=== PATIENT | male | born 1965 | race Caucasian/White ===

== ENCOUNTER 2018-04-08 17:39 | Emergency (ER) | payer BC, OTHER ==
[~2018-04-08] VITALS: Ht 182.9 cm; Wt 93.0 kg
[~2018-04-08 17:39] MED LIST: BACT2OIN TOP; CEPH500C3 PO; INDO50CA PO; LORT5TAB PO; TOPR100T15 PO; VYTO10TA29 PO
[2018-04-08 17:46] VITALS: BP 165/92; PULSE 91; RESP 16; TEMP 98.5; O2SAT 97
[2018-04-08] MEDS ORDERED: SODIUM CHLORIDE 0.9% FLUSH 10 ML FLUSH IVF PRN (18:30)
[2018-04-08] MEDS ORDERED: SODIUM CHLOR 0.9% 1000 ML INJ 1,000 ML IV ONE (18:30)
[2018-04-08] MEDS ORDERED: KETOROLAC TROMETHAMINE 30 MG/ML (IVP) VIAL IV PUSH ONE (18:30)
[2018-04-08 18:53] LABS: AUTOMATED NEUTROPHIL # 6.7 TH/MM3 (1.8-7.7); BASOPHIL # 0.4 TH/MM3 (0-0.2); BASOPHIL % 4.3 % (0.0-2.0); EOSINOPHIL # 0.3 TH/MM3 (0-0.4); EOSINOPHIL % 3.3 % (0.0-4.0); HEMATOCRIT 43.3 % (39.0-51.0); HEMOGLOBIN 14.7 GM/DL (13.0-17.0); MEAN CELL VOLUME 94.9 FL (80.0-100.0); MEAN CORPUSCULAR HEMOGLOBIN 32.2 PG (27.0-34.0); MEAN CORPUSCULAR HGB CONC 33.9 % (32.0-36.0); MEAN PLATELET VOLUME 8.2 FL (7.0-11.0); MONO % 8.6 % (0.0-8.0); MONOCYTE # 0.9 TH/MM3 (0-0.9); NEUT % 64.8 % (16.0-70.0); PLATELET COUNT 265 TH/MM3 (150-450); RED BLOOD COUNT 4.56 MIL/MM3 (4.50-5.90); RED CELL DISTRIBUTION WIDTH 11.9 % (11.6-17.2); WHITE BLOOD COUNT 10.3 TH/MM3 (4.0-11.0)
--- NOTE | 2018-04-08 18:53 | RADRPT ---
EXAM DATE/TIME: 04/08/2018 18:27 [facility] COMPARISON: No previous studies available for comparison. INDICATIONS : Right side chest pain for 5 days MEDICAL HISTORY : None. SURGICAL HISTORY : None. ENCOUNTER: Initial ACUITY: 4 - 6 days PAIN SCORE: 8/10 LOCATION: Right chest FINDINGS: Platelike airspace consolidations in the right lower lung zone. Cardiomediastinal contours are within normal limits. Bony thorax is intact. CONCLUSION: 1. Platelike right lower lung zone airspace consolidations, presumably atelectasis. Differential cons iderations include pneumonia and aspiration in the proper clinical setting. Joe Ruvalcaba MD on April 08, 2018 at 18:50 Board Certified Radiologist. This report was verified electronically.
[2018-04-08 19:01] LABS: CHLORIDE 105 MEQ/L (98-107); SODIUM (NA) 139 MEQ/L (136-145)
[2018-04-08 19:04] LABS: CALCIUM 9.6 MG/DL (8.5-10.1)
[2018-04-08 19:05] VITALS: BP 144/94; PULSE 91; RESP 18; O2SAT 95
[2018-04-08 19:05] LABS: ALBUMIN 3.8 GM/DL (3.4-5.0); BICARBONATE 28.1 MEQ/L (21.0-32.0); BLOOD UREA NITROGEN 13 MG/DL (7-18); GLUCOSE,RANDOM 87 MG/DL (74-106); MAGNESIUM 2.1 MG/DL (1.5-2.5)
[2018-04-08 19:07] LABS: PROTHROMBIN TIME - PATIENT 10.4 SEC (9.8-11.6)
--- NOTE | 2018-04-08 19:07 | PD ---
HPI Chief Complaint: Musculoskeletal Complaint Time Seen by Provider: 18:15 Travel History International Travel<30 days: No Contact w/Intl Traveler<30days: No Traveled to known affect area: No History of Present Illness HPI Patient is a 53-year-old male who presents the emergency room with multiple complaints. Patient reports that for the past 4 days, he has been having sharp stabbing pains to his right lateral chest/flank. Patient reports that pain has been constant but does change in intensity. Patient reports that pain today has been more severe. Patient reports that he has been having some difficulty with breathing and he describes his pain as pleuritic in nature. Denies any diaphoresis, denies any nausea or vomiting. Reports that he does have history of costochondritis. Patient denies any history of diabetes or hyperlipidemia or coronary artery disease. Denies any recent travels or trips. Patient reports that along with his chest pain/flank pain, he is also been having a headache. Patient reports a nonspecific headache, reports that he did not try taking any medications for relief of symptoms. Reports that this is not the worst headache of his life, denies thunderclap headache. Denies any vision changes. Patient denies any fever or chills, reports similar headaches in the past. PFSH Past Medical History High Cholesterol: Yes Hypertension: Yes Social History Alcohol Use: Yes (MODERATE) Tobacco Use: No Substance Use: No Allergies-Medications (Allergen,Severity, Reaction): Coded Allergies: No Known Allergies (Verified Allergy, Unknown, 04/08/18) Reported Meds & Prescriptions Reported Meds & Active Scripts Active Azithromycin 500 Mg Tab 500 Mg PO DAILY Review of Systems General / Constitutional: No: Fever Eyes: No: Visual changes HENT: Positive: Headaches Cardiovascular: Positive: Chest Pain or Discomfort Respiratory: Positive: Shortness of Breath Gastrointestinal: No: Abdominal Pain Genitourinary: Positive: Flank Pain, No: Dysuria Musculoskeletal: No: Pain Skin: No Rash Neurologic: No: Weakness Psychiatric: No: Depression Endocrine: No: Polydipsia Hematologic/Lymphatic: No: Easy Bruising Physical Exam Narrative GENERAL: No acute distress SKIN: Focused skin assessment warm/dry. HEAD: Atraumatic. Normocephalic. EYES: Pupils equal and round. No scleral icterus. No injection or drainage. ENT: No nasal bleeding or discharge. Mucous membranes pink and moist. NECK: Trachea midline. No JVD. CARDIOVASCULAR: Regular rate and rhythm. No murmur appreciated. Patient with right-sided lateral chest wall tenderness RESPIRATORY: No accessory muscle use. Clear to auscultation. Breath sounds equal bilaterally. GASTROINTESTINAL: Abdomen soft, non-tender, nondistended. Hepatic and splenic margins not palpable. MUSCULOSKELETAL: No obvious deformities. No clubbing. No cyanosis. No edema. NEUROLOGICAL: Awake and alert. No obvious cranial nerve deficits. Motor grossly within normal limits. Normal speech. PSYCHIATRIC: Appropriate mood and affect; insight and judgment normal. Data Data Last Documented VS Vital Signs Date Time Temp Pulse Resp B/P (MAP) Pulse Ox O2 Delivery O2 Flow Rate FiO2 04/08/18 19:33 96 18 04/08/18 19:10 151/88 (109) 95 04/08/18 19:05 Room Air 04/08/18 17:46 98.5 Orders Orders Electrocardiogram (04/08/18 ) B-Type Natriuretic Peptide (04/08/18 18:23) Ckmb (Isoenzyme) Profile (04/08/18 18:23) Complete Blood Count With Diff (04/08/18 18:23) Comprehensive Metabolic Panel (04/08/18 18:23) D-Dimer (04/08/18 18:23) Magnesium (Mg) (04/08/18 18:23) Prothrombin Time / Inr (Pt) (04/08/18 18:23) Act Partial Throm Time (Ptt) (04/08/18 18:23) Troponin I (04/08/18 18:23) Lipase (04/08/18 18:23) Chest, Single Ap (04/08/18 18:23) Ecg Monitoring (04/08/18 18:23) Iv Access Insert/Monitor (04/08/18 18:23) Oximetry (04/08/18 18:23) Sodium Chloride 0.9% Flush (Ns Flush) (04/08/18 18:30) Urinalysis - C+S If Indicated (04/08/18 18:23) Ketorolac Inj (Toradol Inj) (04/08/18 18:30) Sodium Chlor 0.9% 1000 Ml Inj (Ns 1000 M (04/08/18 18:30) Ct Pulmonary Angiogram (04/08/18 19:48) Morphine Inj (Morphine Inj) (04/08/18 20:45) Iohexol 350 Inj (Omnipaque 350 Inj) (04/08/18 20:48) Blood Culture (04/08/18 21:39) Azithromycin Inj (Zithromax Inj) (04/08/18 21:45) Ceftriaxone Inj (Rocephin Inj) (04/08/18 21:45) Labs Laboratory Tests Test 04/08/18 18:45 04/08/18 19:50 White Blood Count 10.3 TH/MM3 Red Blood Count 4.56 MIL/MM3 Hemoglobin 14.7 GM/DL Hematocrit 43.3 % Mean Corpuscular Volume 94.9 FL Mean Corpuscular Hemoglobin 32.2 PG Mean Corpuscular Hemoglobin Concent 33.9 % Red Cell Distribution Width 11.9 % Platelet Count 265 TH/MM3 Mean Platelet Volume 8.2 FL Neutrophils (%) (Auto) 64.8 % Lymphocytes (%) (Auto) 19.0 % Monocytes (%) (Auto) 8.6 % Eosinophils (%) (Auto) 3.3 % Basophils (%) (Auto) 4.3 % Neutrophils # (Auto) 6.7 TH/MM3 Lymphocytes # (Auto) 2.0 TH/MM3 Monocytes # (Auto) 0.9 TH/MM3 Eosinophils # (Auto) 0.3 TH/MM3 Basophils # (Auto) 0.4 TH/MM3 CBC Comment DIFF FINAL Differential Comment Prothrombin Time 10.4 SEC Prothromb Time International Ratio 1.0 RATIO Activated Partial Thromboplast Time 25.9 SEC D-Dimer Quantitative (PE/DVT) 2.02 MG/L FEU Blood Urea Nitrogen 13 MG/DL Creatinine 0.87 MG/DL Random Glucose 87 MG/DL Total Protein 8.4 GM/DL Albumin 3.8 GM/DL Calcium Level 9.6 MG/DL Magnesium Level 2.1 MG/DL Alkaline Phosphatase 70 U/L Aspartate Amino Transf (AST/SGOT) 17 U/L Alanine Aminotransferase (ALT/SGPT) 31 U/L Total Bilirubin 0.9 MG/DL Sodium Level 139 MEQ/L Potassium Level 3.8 MEQ/L Chloride Level 105 MEQ/L Carbon Dioxide Level 28.1 MEQ/L Anion Gap 6 MEQ/L Estimat Glomerular Filtration Rate 91 ML/MIN Total Creatine Kinase 76 U/L Troponin I LESS THAN 0.02 NG/ML B-Type Natriuretic Peptide 21 PG/ML Lipase 176 U/L Urine Color YELLOW Urine Turbidity CLEAR Urine pH 6.0 Urine Specific [place] 1.025 Urine Protein NEG mg/dL Urine Glucose (UA) NEG mg/dL Urine Ketones NEG mg/dL Urine Occult Blood NEG Urine Nitrite NEG Urine Bilirubin NEG Urine Urobilinogen 0.2 MG/DL Urine Leukocyte Esterase NEG Urine RBC 0-2 /hpf Urine WBC 0-2 /hpf Urine Squamous Epithelial Cells 0-5 /hpf Urine Bacteria NONE /hpf Microscopic Urinalysis Comment CULT NOT INDICATED MDM Medical Decision Making Medical Screen Exam Complete: Yes Emergency Medical Condition: Yes Medical Record Reviewed: Yes Interpretation(s) EKG at 1851: Normal sinus rhythm at 91 bpm, patient with nonspecific T-wave changes on EKG, there are no acute ST-T wave changes Vital Signs Date Time Temp Pulse Resp B/P (MAP) Pulse Ox O2 Delivery O2 Flow Rate FiO2 04/08/18 19:05 95 04/08/18 19:05 91 18 144/94 (111) 95 Room Air 04/08/18 17:46 98.5 91 16 165/92 (116) 97 Differential Diagnosis ACS, arrhythmia, PE, kidney stone, pyelonephritis, UTI, pneumothorax, pneumonia , costochondritis Narrative Course Patient is a 53-year-old male who presents the emergency room complaints of right-sided flank/chest pain which has been ongoing for the past 3 days. During the course of the patients emergency department visit, the patients history, examination, and differential diagnosis were reviewed with the patient. The patient was placed on a court monitor with oximetry and frequent blood pressure monitoring. The patient had an IV access obtained and blood work sent for analysis. The patient was initially provided IV fluids as well as IV Toradol for relief of headache and for relief of his right flank/chest pain. The patients laboratory studies were reviewed and remarkable for Laboratory Tests Test 04/08/18 18:45 White Blood Count 10.3 TH/MM3 (4.0-11.0) Red Blood Count 4.56 MIL/MM3 (4.50-5.90) Hemoglobin 14.7 GM/DL (13.0-17.0) Hematocrit 43.3 % (39.0-51.0) Mean Corpuscular Volume 94.9 FL (80.0-100.0) Mean Corpuscular Hemoglobin 32.2 PG (27.0-34.0) Mean Corpuscular Hemoglobin Concent 33.9 % (32.0-36.0) Red Cell Distribution Width 11.9 % (11.6-17.2) Platelet Count 265 TH/MM3 (150-450) Mean Platelet Volume 8.2 FL (7.0-11.0) Neutrophils (%) (Auto) 64.8 % (16.0-70.0) Lymphocytes (%) (Auto) 19.0 % (9.0-44.0) Monocytes (%) (Auto) 8.6 % (0.0-8.0) Eosinophils (%) (Auto) 3.3 % (0.0-4.0) Basophils (%) (Auto) 4.3 % (0.0-2.0) Neutrophils # (Auto) 6.7 TH/MM3 (1.8-7.7) Lymphocytes # (Auto) 2.0 TH/MM3 (1.0-4.8) Monocytes # (Auto) 0.9 TH/MM3 (0-0.9) Eosinophils # (Auto) 0.3 TH/MM3 (0-0.4) Basophils # (Auto) 0.4 TH/MM3 (0-0.2) CBC Comment DIFF FINAL Differential Comment Prothrombin Time 10.4 SEC (9.8-11.6) Prothromb Time International Ratio 1.0 RATIO Activated Partial Thromboplast Time 25.9 SEC (24.3-30.1) D-Dimer Quantitative (PE/DVT) 2.02 MG/L FEU (0.00-0.50) Blood Urea Nitrogen 13 MG/DL (7-18) Creatinine 0.87 MG/DL (0.60-1.30) Random Glucose 87 MG/DL (74-106) Total Protein 8.4 GM/DL (6.4-8.2) Albumin 3.8 GM/DL (3.4-5.0) Calcium Level 9.6 MG/DL (8.5-10.1) Magnesium Level 2.1 MG/DL (1.5-2.5) Alkaline Phosphatase 70 U/L (45-117) Aspartate Amino Transf (AST/SGOT) 17 U/L (15-37) Alanine Aminotransferase (ALT/SGPT) 31 U/L (12-78) Total Bilirubin 0.9 MG/DL (0.2-1.0) Sodium Level 139 MEQ/L (136-145) Potassium Level 3.8 MEQ/L (3.5-5.1) Chloride Level 105 MEQ/L (98-107) Carbon Dioxide Level 28.1 MEQ/L (21.0-32.0) Anion Gap 6 MEQ/L (5-15) Estimat Glomerular Filtration Rate 91 ML/MIN (>89) Total Creatine Kinase 76 U/L (39-308) Troponin I LESS THAN 0.02 NG/ML B-Type Natriuretic Peptide 21 PG/ML (0-100) Lipase 176 U/L (73-393) Radiology studies were reviewed and remarkable for Last Impressions Chest X-Ray 04/08/181822 Signed Impressions: Service Date/Time: Sunday, April 08, 2018 18:27 - CONCLUSION: 1. Platelike right lower lung zone airspace consolidations, presumably atelectasis. Differential considerations include pneumonia and aspiration in the proper clinical setting. Joe Ruvalcaba MD Patient's x-ray of the chest shows a platelet right lower lung airspace consolidation, consideration for pneumonia versus aspiration. Patient denies any cough or congestion, also denies any fevers or chills. Patient's d-dimer is positive, given his pleuritic chest pain, plan to obtain CT angiogram to rule out pulmonary embolism. This was discussed with patient who consents to study. Last Impressions CT Angiography 04/08/181947 Signed Impressions: Service Date/Time: Sunday, April 08, 2018 20:37 - CONCLUSION: 1. Focal dense airspace consolidation in the right lung base with small right-sided pleural effusion. Differential considerations include pneumonia with parapneumonic effusion an aspiration in the appropriate clinical settings. 2. Suboptimal opacification of the pulmonary arteries beyond the very proximal segmental branches without definitive evidence for pulmonary artery embolism to this level. There is asymmetric decreased perfusion of an isolated posterior segmental branch in the right lower lobe which may be due to volume loss in this region. However, a focal pulmonary artery embolus cannot be definitively excluded in the setting of high clinical suspicion for pulmonary embolism. 3. Normal caliber thoracic aorta. Joe Ruvalcaba MD Chest X-Ray 04/08/181822 Signed Impressions: Service Date/Time: Sunday, April 08, 2018 18:27 - CONCLUSION: 1. Platelike right lower lung zone airspace consolidations, presumably atelectasis. Differential considerations include pneumonia and aspiration in the proper clinical setting. Joe Ruvalcaba MD CT resulted, patient with most likely an infiltrate -patient with pleuritic right-sided chest pain, pain is more to his right lower lungs, right lateral chest wall. Plan to culture patient and administer antibiotics. Patient with no cough or congestion, vital signs are stable, lab work is benign. I do not believe that patient is having cardiac chest pain, I do think that his pleuritic chest pain is most likely due to this right lower lobe infiltrate. Patient has been pancultured, he has been given a dose of azithromycin as well as Rocephin. plan to discharge patient home with oral azithromycin. As per patient's headache, patient reports resolution of his headache at this time. Patient with a normal neurological exam, does not require CT of the head at this time. He will follow-up with his primary care doctor and will return to the emergency room as needed. Signs and symptoms of when to return to the emergency room was reviewed with the patient in detail. Diagnosis Primary Impression: Pneumonia Qualified Codes: J18.1 - Lobar pneumonia, unspecified organism Patient Instructions: General Instructions Additional Instructions: Please provide patient with a copy of their lab work and studies at discharge* * Please follow up with your primary care doctor in 2-3 days Return to the ER if symptoms worsen or progress Return to the ER as needed Please take all medications as prescribed Please return to the emergency room if you develop any fevers or chills or progressing symptoms Please follow-up with all cultures from today Med/Other Pt SpecificInfo: Prescription(s) given Scripts Azithromycin (Azithromycin) 500 Mg Tab 500 MG PO DAILY for Infection, #7 TAB 0 Refills Prov: Mahogany Muñiz DO 04/08/18 Disposition: 01 DISCHARGE HOME Condition: Stable Mahogany Muñiz DO April 08, 2018 19:07
[2018-04-08 19:08] LABS: ALT (GPT) 31 U/L (12-78); AST (GOT) 17 U/L (15-37); CREATININE 0.87 MG/DL (0.60-1.30); GLOMERULAR FILTRATION RATE 91 ML/MIN (>89)
[2018-04-08 19:09] LABS: TOTAL BILIRUBIN ADULT 0.9 MG/DL (0.2-1.0); TOTAL PROTEIN 8.4 GM/DL (6.4-8.2)
[2018-04-08 19:10] VITALS: BP 151/88; PULSE 96; RESP 20; O2SAT 95
[2018-04-08 19:10] LABS: ALKALINE PHOSPHATASE 70 U/L (45-117); D-DIMER 2.02 MG/L FEU (0.00-0.50)
[2018-04-08 19:13] LABS: TROPONIN I LESS THAN 0.02 NG/ML (0.02-0.05)
[2018-04-08 20:04] LABS: BILIRUBIN, URINE NEG (NEG); BLOOD, URINE NEG (NEG); GLUCOSE,URINE NEG (NEG); KETONE, URINE NEG (NEG); NITRITE,URINE NEG (NEG); URINE COLOR YELLOW (YELLW/STRAW); URINE LEUKOCYTE ESTERASE NEG (NEG)
[2018-04-08 20:08] LABS: RBC, URINE 0-2 /hpf (0-3); SQUAMOUS EPITHELIAL CELL URINE 0-5 /hpf (0-5); WBC, URINE 0-2 /hpf (0-5)
[2018-04-08] MEDS ORDERED: MORPHINE SULFATE 4 MG/ML INJ IV PUSH ONE (20:45)
[2018-04-08] MEDS ORDERED: IOHEXOL 350 MG/ML 10 ML VIAL (for RAD DIAG) IVCONTRAST ONE (20:48)
--- NOTE | 2018-04-08 21:18 | RADRPT ---
EXAM DATE/TIME: 04/08/2018 20:37 [facility] COMPARISON: No previous studies available for comparison. INDICATIONS : Chest pain radiating to the back. IV CONTRAST: 65 cc Omnipaque 350 (iohexol) IV RADIATION DOSE: 20.70 CTDIvol (mGy) MEDICAL HISTORY : Hypertension. SURGICAL HISTORY : None. ENCOUNTER: Initial ACUITY: 4 - 6 days PAIN SCALE: 8/10 LOCATION: chest TECHNIQUE: Volumetric scanning of the chest was performed using a pulmonary embolism protocol MIP images were re constructed. Using automated exposure control and adjustment of the mA and/or kV according to patien t size, radiation dose was kept as low as reasonably achievable to obtain optimal diagnostic quality images. DICOM format image data is available electronically for review and comparison. Follow-up recommendations for detected pulmonary nodules are based at a minimum on nodule size and pa tient risk factors according to Fleischner Society Guidelines. FINDINGS: PULMONARY ARTERIES: There is suboptimal opacification beyond the very proximal segmental branches. There is however somew hat asymmetric decreased perfusion of a posterior segmental branch in the right lower lobe. Otherwise , the pulmonary arteries are patent to the very proximal segmental level. LUNGS: Focal dense airspace consolidation in the right lung base with associated volume loss. PLEURAE: Very small right-sided pleural effusion. MEDIASTINUM: Calcified right hilar nodes. Heart is unremarkable without significant pericardial effusion. Thoracic aorta is normal in caliber with scanner 3 vessel arch anatomy. MUSCULOSKELETAL: Within normal limits for patient age. MISCELLANEOUS: The visualized upper abdominal organs demonstrate no acute abnormality. CONCLUSION: 1. Focal dense airspace consolidation in the right lung base with small right-sided pleural effusion. Differential considerations include pneumonia with parapneumonic effusion an aspiration in the appro priate clinical settings. 2. Suboptimal opacification of the pulmonary arteries beyond the very proximal segmental branches wit hout definitive evidence for pulmonary artery embolism to this level. There is asymmetric decreased p erfusion of an isolated posterior segmental branch in the right lower lobe which may be due to volume loss in this region. However, a focal pulmonary artery embolus cannot be definitively excluded in th e setting of high clinical suspicion for pulmonary embolism. 3. Normal caliber thoracic aorta. Joe Ruvalcaba MD on April 08, 2018 at 21:10 Board Certified Radiologist. This report was verified electronically.
[2018-04-08 21:30] VITALS: BP 127/72; PULSE 76; RESP 20; O2SAT 98
[2018-04-08] MEDS ORDERED: cefTRIAXone INJ 1,000 MG in SODIUM CHLORIDE 0.9% INJ 100 ML IV ONE (21:45)
[2018-04-08] MEDS ORDERED: AZITHROMYCIN INJ 500 MG in SODIUM CHLOR 0.9% 250 ML INJ 250 ML IV ONE (21:45)
[2018-04-08] MEDS ORDERED: AZIT500T2 PO (21:50)
--- NOTE | 2018-04-08 22:42 | EKG ---
Date Performed: 04/08/2018 Time Performed: 18:21:50 PTAGE: 53 years EKG: Sinus rhythm MINIMAL VOLTAGE CRITERIA FOR LVH, CONSIDER NORMAL VARIANT NONSPECIFIC T-WAVE ABNORMALITY BORDERLINE ECG PREVIOUS TRACING : 04/10/2000 11.03 No significant change from previous tracing noted. DOCTOR: Sebastian Graham Interpretating Date/Time 04/08/2018 22:40:20
[2018-04-09 00:24] VITALS: BP 130/72
== END 2018-04-09 00:35 | disposition home or self-care (01) ==
LOC: PHED 17:39
DX: J18.1 Lobar pneumonia, unspecified organism (principal); R51 Headache; I10 Essential (primary) hypertension; E78.00 Pure hypercholesterolemia, unspecified; R94.31 Abnormal electrocardiogram [ECG] [EKG]
CPT/HCPCS: 71045; 71275; 80053; 81001; 82550; 83690; 83735; 83880; 84484; 85025; 85379; 85610; 85730; 87040; 93005; 96361; 96365; 96368; 96375; 99285; J0456; J0696; J1885; J2270; J7030; J7050; Q9967